=== PATIENT | female | born 1965 | race Caucasian/White ===

== ENCOUNTER 2019-01-08 19:01 | Emergency (ER) | payer MEDICAID ==
[~2019-01-08] VITALS: Ht 162.6 cm; Wt 79.4 kg
[~2019-01-08 19:01] MED LIST: ALBUTEROL SULF8.5 GM INH; LOMOTIL TABLET1 EACH ORAL; NKM; PANTOPRAZOLE SO40 MG ORAL; PREDNISONE20 MG ORAL; ZANTAC150 MG ORAL
[2019-01-08 19:10] VITALS: BP 138/91
[2019-01-08] MEDS ORDERED: CYMBALTA30 MG ORAL (19:10)
--- NOTE | 2019-01-08 19:10 | NUR ---
ED Nurse Note: Patient walked into ED c/o right knee pain that has been an on going issue for the past 3 weks, patient reports of not slipping or falling, states that pain has been an ongoing issue, patient walks with a steady gait, patient rates her pain a 10/10
[2019-01-08] MEDS ORDERED: NAPROXEN500 M2 ORAL (19:44)
--- NOTE | 2019-01-08 19:44 | Emergency Room Report ---
History of Present Illness General Chief Complaint: Pain Source: Patient Present Illness HPI 53-year-old female with history of hypertension currently controlled with medication as well as osteoarthritis here complaining of increased pain in her right knee x2 weeks. Patient denies fall and injury. Reports that 2 weeks ago she went to [facility] and x-rays were done and she was told that she has a follow-up with her primary care provider and her supervisor wrapping room regarding her existing arthritis. Patient was given ibuprofen and tramadol. Patient reports that her pain has been getting worse in the past few days with a lot of edema of the right knee. Denies pain radiation however rating the pain 10 out of 10 and constant especially with walking. Denies tingling and numbness. Denies chest pain, shortness of breath, palpitation, cardiac history. Cures was done on patient and patient has recently received tramadol. Allergies: Coded Allergies: PENICILLINS (Verified Allergy, Unknown, 08/08/15) Uncoded Allergies: MORPHINE (Allergy, Unknown, 08/08/15) Patient History Past Medical History: see triage record Past Surgical History: unable to obtain Pertinent Family History: none Last Menstrual Period: 2004 Now: No Immunizations: UTD Reviewed Nursing Documentation: PMH: Agreed; PSxH: Agreed Nursing Documentation-PMH Past Medical History: No History, Except For Hx Asthma: Yes Hx Gastrointestinal Problems: Yes - colitis, gastritis, ulcer Review of Systems All Other Systems: negative except mentioned in HPI Physical Exam Vital Signs Date Time Temp Pulse Resp B/P (MAP) Pulse Ox O2 Delivery O2 Flow Rate FiO2 01/08/19 19:07 97.5 86 16 138/91 (107) 98 Room Air Sp02 EP Interpretation: reviewed, normal General Appearance: normal inspection, well appearing, no apparent distress Head: normocephalic, atraumatic Eyes: bilateral eye normal inspection, bilateral eye PERRL ENT: normal ENT inspection, hearing grossly normal, normal pharynx Neck: normal inspection, full range of motion, supple, thyroid normal, no bony tend Respiratory: normal inspection, chest non-tender, lungs clear, no rhonchi, no respiratory distress, no wheezing Cardiovascular #1: normal inspection, regular rate, rhythm, no edema, no murmur Cardiovascular #2: 2+ dorsalis pedis (R), 2+ dorsalis pedis (L) Gastrointestinal: normal inspection, no mass Genitourinary: no CVA tenderness, other - Swelling of right knee with effusion Musculoskeletal: non-tender, no calf tenderness, swelling - Also left knee is swollen and which is suggestive of patient chronic arthritis Neurologic: normal inspection, alert, oriented x3 Psychiatric: normal inspection, judgement/insight normal Skin: no rash, normal color Lymphatic: normal inspection, no adenopathy Medical Decision Making PA Attestation All my diagnosis and treatment plans were reviewed ad discussed with my supervising physician Dr. Lagunas Diagnostic Impression: Primary Impression: Effusion, right knee Additional Impression: Arthritis ER Course 53-year-old female with history of hypertension currently controlled with medication as well as osteoarthritis here complaining of increased pain in her right knee x2 weeks. Patient denies fall and injury. Reports that 2 weeks ago she went to [facility] and x-rays were done and she was told that she has a follow-up with her primary care provider and her supervisor wrapping room regarding her existing arthritis. Patient was given ibuprofen and tramadol. Patient reports that her pain has been getting worse in the past few days with a lot of edema of the right knee. Denies pain radiation however rating the pain 10 out of 10 and constant especially with walking. Denies tingling and numbness. Denies chest pain, shortness of breath, palpitation, cardiac history. Cures was done on patient and patient has recently received tramadol. Ddx considered but are not limited to: Knee contusion, sprain, strain, arthritis , effusion Vital signs: are WNL, pt. is afebrile H&PE are most consistent with: Knee effusion arthritis ORDERS: Toradol IM, naproxen ED INTERVENTIONS: Toradol IM DISCHARGE: At this time pt. is stable for d/c to home. Will provide printed patient care instructions, and any necessary prescriptions. Care plan and follow up instructions have been discussed with the patient prior to discharge. At this point no further imaging is needed as a condition edition patient patient recently had x-ray of the right knee patient to follow-up with orthopedics as well as her supervisor wrapping room for further pain management evaluation of right knee effusion I advised the patient to lose weight and keep leg elevated alternate between icing heating the affected area also patient says that she has no cardiac history and was recently cleared for any cardiac abnormality with her primary care provider Last Vital Signs Date Time Temp Pulse Resp B/P (MAP) Pulse Ox O2 Delivery O2 Flow Rate FiO2 7/1/19 19:07 97.5 86 16 138/91 (107) 98 Room Air Disposition: HOME, SELF-CARE Condition: Stable Scripts Naproxen* (NAPROXEN*) 500 Mg Tablet 500 MG ORAL TWICE A DAY, #30 TAB Prov: Amanda Little 01/08/19 Patient Instructions: Arthritis, [id number], Knee Effusion, [id number] Additional Instructions: Follow-up with your primary care provider, your supervisor wrapping room and also teaching specialists for possible injections of steroids. Referral to physical therapy needed keep legs elevated. Amanda Little Jan 08, 2019 19:44
[2019-01-08] MEDS ORDERED: Ketorolac 30mg Inj IM ONE (19:45)
[2019-01-08 20:15] VITALS: BP 138/91
--- NOTE | 2019-01-08 20:15 | NUR ---
ER DISCHARGE NOTE: Patient is cleared to be discharged per ERMD, pt is aox4, on room air, with stable vital signs. pt was given dc and prescription instructions, pt was able to verbalize understanding, pt id band removed without complications. pt is able to ambulate with steady gait. pt took all belongings.
== END 2019-01-08 20:15 | disposition home or self-care (01) ==
LOC: EMR 19:42
DX: M25.461 Effusion, right knee (principal); M19.90 Unspecified osteoarthritis, unspecified site; Z88.0 Allergy status to penicillin; Z88.6 Allergy status to analgesic agent
CPT/HCPCS: 96372; 99283; J1885

== ENCOUNTER 2019-06-14 20:01 | Emergency (ER) | payer MEDICAID ==
[~2019-06-14] VITALS: Ht 162.6 cm; Wt 83.9 kg
[~2019-06-14 20:01] MED LIST changes: +CYMBALTA30 MG ORAL; +NAPROXEN500 M2 ORAL
[2019-06-14] MEDS ORDERED: OMEPRAZOLE20 M2 ORAL (20:08)
--- NOTE | 2019-06-14 20:10 | NUR ---
ED Nurse Note: pt presents to ED c/o CALDERON that is in the front and temples, abd pain that is in the middle of her abd and N/V/D xm 2 days. pt rates pain in both places a 10/10. pt does not know how many times she has vomited but reports not being able to keep any food or drinks down for the last two days. she started having diarrhea today but denies any blood in the diarrhea or blood in vomitus. pt denies any urinary symptoms, SOB or CP at this time. pt did not take anything [employer] and has a h/o fibromyalgia and arthritis.
[2019-06-14] MEDS ORDERED: Mylanta II UD 30ml ORAL ONE (20:15)
[2019-06-14] MEDS ORDERED: Omnipaque-300 100ml vial INJ PRN (20:15)
[2019-06-14] MEDS ORDERED: Hydromorphone 0.5mg/0.5ml inj IVP ONE (20:15)
[2019-06-14 20:30] VITALS: BP 155/99
[2019-06-14] MEDS ORDERED: DiphenhydrAMINE 50mg/ml Inj IVP ONE (20:30)
[2019-06-14] MEDS ORDERED: Metoclopramide 10mg/2ml Inj IVP ONE (20:30)
[2019-06-14 20:43] LABS: APPEARANCE,URINE CLOUDY; BILIRUBIN, URINE NEGATIVE (NEGATIVE); COLOR,URINE PALE YELLOW; GLUCOSE, URINE (UA) NEGATIVE (NEGATIVE); KETONES,URINE NEGATIVE (NEGATIVE); LEUKOCYTE ESTERASE ,URINE 1+ (NEGATIVE); NITRITE,URINE NEGATIVE (NEGATIVE); PH,URINE 8 (4.5-8.0); PROTEIN,URINE NEGATIVE (NEGATIVE); UROBILINOGEN,URINE NORMAL MG/DL (0.0-1.0)
[2019-06-14 20:48] LABS: BASOPHILS % (AUTO) 0.7 % (0.0-2.0); EOSINOPHILS % (AUTO) 1.2 % (0.0-3.0); HEMATOCRIT 41.7 % (37.0-47.0); HEMOGLOBIN 14.6 G/DL (12.0-16.0); LYMPHOCYTES % (AUTO) 22.9 % (20.0-45.0); MEAN CORPUSCULAR VOLUME 84 FL (80-99); MONOCYTES % (AUTO) 5.1 % (1.0-10.0); NEUTROPHILS % (AUTO) 70.1 % (45.0-75.0); PLATELET COUNT 263 K/UL (150-450); RED BLOOD COUNT 4.96 M/UL (4.20-5.40); RED CELL DISTRIBUTION WIDTH 10.4 % (11.6-14.8); WHITE BLOOD COUNT 6.7 K/UL (4.8-10.8)
[2019-06-14 20:59] LABS: ANION GAP 4 mmol/L (5-15); BLOOD UREA NITROGEN 9 mg/dL (7-18); CARBON DIOXIDE 35 MMOL/L (21-32); CHLORIDE 100 MMOL/L (98-107); CREATININE 0.7 MG/DL (0.55-1.30); POTASSIUM 3.6 MMOL/L (3.5-5.1); SODIUM 138 MMOL/L (136-145)
[2019-06-14 21:01] LABS: INR 0.9 (0.9-1.1)
[2019-06-14 21:04] LABS: ALANINE AMINOTRANSFERASE 87 U/L (12-78); ALBUMIN 4.1 G/DL (3.4-5.0); ALBUMIN/GLOBULIN RATIO 1.1 (1.0-2.7); ALKALINE PHOSPHATASE 112 U/L (46-116); ASPARTATE AMINO TRANSFERASE 47 U/L (15-37); BILIRUBIN,TOTAL 0.5 MG/DL (0.2-1.0)
--- NOTE | 2019-06-14 21:30 | NUR ---
ED Nurse Note: pt drove herself here but can call her son to pick her up and leave her car here
[2019-06-14] MEDS ORDERED: cefTRIAXone 1 GM in NS 55 ML IVPB ONE (21:45)
--- NOTE | 2019-06-14 21:45 | Emergency Room Report ---
History of Present Illness General Chief Complaint: Nausea, Vomiting, and Diarrhea Source: Patient Present Illness HPI 53-year-old female presents with acute nausea vomiting and diarrhea x1 day no aggravating relieving factors she endorses generalized abdominal pain achy, intermittent, no blood in her stool, severity is mild, patient is feeling a little dehydrated having a headache, patient presents for evaluation and treatment she denies any chest pain shortness of breath dyspnea on exertion no fevers or chills Allergies: Coded Allergies: PENICILLINS (Verified Allergy, Unknown, 08/08/15) Uncoded Allergies: MORPHINE (Allergy, Unknown, 08/08/15) Patient History Past Medical History: see triage record Reviewed Nursing Documentation: PMH: Agreed; PSxH: Agreed Nursing Documentation-PMH Hx Asthma: Yes Hx Gastrointestinal Problems: Yes - colitis, gastritis, ulcer Review of Systems All Other Systems: negative except mentioned in HPI Physical Exam Vital Signs Date Time Temp Pulse Resp B/P (MAP) Pulse Ox O2 Delivery O2 Flow Rate FiO2 06/14/19 20:05 97.5 90 19 155/99 (117) 98 Room Air Sp02 EP Interpretation: reviewed, normal General Appearance: well appearing, no apparent distress, alert Head: normocephalic, atraumatic Eyes: bilateral eye PERRL, bilateral eye EOMI ENT: uvula midline, moist mucus membranes Neck: supple, thyroid normal, supple/symm/no masses Respiratory: lungs clear, no respiratory distress, no retraction, no accessory muscle use Cardiovascular #1: normal peripheral pulses, regular rate, rhythm, no edema, no gallop, no murmur Gastrointestinal: non tender, soft, no guarding, no rebound Musculoskeletal: normal inspection Neurologic: alert, oriented x3 Psychiatric: mood/affect normal Skin: no rash, warm/dry Medical Decision Making Diagnostic Impression: Primary Impression: Nausea, vomiting, and diarrhea Additional Impressions: Gastroenteritis UTI (urinary tract infection) Qualified Codes: N30.00 - Acute cystitis without hematuria ER Course 53-year-old female presents with generalized abdominal pain, differential diagnosis includes gastroenteritis, UTI diverticulitis, appendicitis Patient's abdomen is soft nontender, patient given fluid hydration, pain control , reevaluation at 9:35 PM, patient feels better counseled patient that she may not need a CT scan, joint patient making was made with patient not to pursue CT abdomen pelvis in order to prevent radiation exposure, patient states she feels completely fine Strict return precautions were discussed, will give antibiotics for UTI Disposition home with return precautions Laboratory Tests Test 06/14/19 20:09 06/14/19 20:25 Urine Color Pale yellow Urine Appearance Cloudy Urine pH 8 (4.5-8.0) Urine Specific [place] 1.010 (1.005-1.035) Urine Protein Negative (NEGATIVE) Urine Glucose (UA) Negative (NEGATIVE) Urine Ketones Negative (NEGATIVE) Urine Blood Negative (NEGATIVE) Urine Nitrite Negative (NEGATIVE) Urine Bilirubin Negative (NEGATIVE) Urine Urobilinogen Normal MG/DL (0.0-1.0) Urine Leukocyte Esterase 1+ (NEGATIVE) H Urine RBC 0-2 /HPF (0 - 2) Urine WBC 0-2 /HPF (0 - 2) Urine Squamous Epithelial Cells Few /LPF (NONE/OCC) Urine Amorphous Sediment Many /LPF (NONE) H Urine Bacteria Moderate /HPF (NONE) H White Blood Count 6.7 K/UL (4.8-10.8) Red Blood Count 4.96 M/UL (4.20-5.40) Hemoglobin 14.6 G/DL (12.0-16.0) Hematocrit 41.7 % (37.0-47.0) Mean Corpuscular Volume 84 FL (80-99) Mean Corpuscular Hemoglobin 29.5 PG (27.0-31.0) Mean Corpuscular Hemoglobin Concent 35.1 G/DL (32.0-36.0) Red Cell Distribution Width 10.4 % (11.6-14.8) L Platelet Count 263 K/UL (150-450) Mean Platelet Volume 7.3 FL (6.5-10.1) Neutrophils (%) (Auto) 70.1 % (45.0-75.0) Lymphocytes (%) (Auto) 22.9 % (20.0-45.0) Monocytes (%) (Auto) 5.1 % (1.0-10.0) Eosinophils (%) (Auto) 1.2 % (0.0-3.0) Basophils (%) (Auto) 0.7 % (0.0-2.0) Prothrombin Time 9.9 SEC (9.30-11.50) Prothrombin Time INR 0.9 (0.9-1.1) PTT 27 SEC (23-33) Sodium Level 138 MMOL/L (136-145) Potassium Level 3.6 MMOL/L (3.5-5.1) Chloride Level 100 MMOL/L (98-107) Carbon Dioxide Level 35 MMOL/L (21-32) H Anion Gap 4 mmol/L (5-15) L Blood Urea Nitrogen 9 mg/dL (7-18) Creatinine 0.7 MG/DL (0.55-1.30) Estimate Glomerular Filtration Rate > 60 mL/min (>60) Glucose Level 120 MG/DL (74-106) H Calcium Level 9.0 MG/DL (8.5-10.1) Total Bilirubin 0.5 MG/DL (0.2-1.0) Aspartate Amino Transferase (AST) 47 U/L (15-37) H Alanine Aminotransferase (ALT) 87 U/L (12-78) H Alkaline Phosphatase 112 U/L (46-116) Troponin I 0.000 ng/mL (0.000-0.056) Total Protein 7.8 G/DL (6.4-8.2) Albumin 4.1 G/DL (3.4-5.0) Globulin 3.7 g/dL Albumin/Globulin Ratio 1.1 (1.0-2.7) Lipase 98 U/L (73-393) EKG Diagnostic Results EKG Time: 20:28 EP Interpretation: NSR, rate 79, QTc 435, no acute ST elevations, left axis dev Rhythm Strip Diag. Results Rhythm Strip Time: 21:44 EP Interpretation: yes Rate: 85 Rhythm: NSR, no PVC's, no ectopy Chest X-Ray Diagnostic Results Chest X-Ray Diagnostic Results : Chest X-Ray Ordered: Yes # of Views/Limited/Complete: 1 View Indication: Other - abdominal pain EP Interpretation: Yes Interpretation: no consolidation, no effusion, no pneumothorax, no acute cardiopulmonary disease Impression: No acute disease Electronically Signed by: Jose Sage MD Last Vital Signs Date Time Temp Pulse Resp B/P (MAP) Pulse Ox O2 Delivery O2 Flow Rate FiO2 06/14/19 21:17 97.5 06/14/19 20:30 95 19 155/99 98 Room Air Disposition: HOME, SELF-CARE Condition: Stable Scripts Ondansetron (Zofran) 4 Mg Tablet 4 MG ORAL Q8H PRN for Nausea & Vomiting, #10 TAB 0 Refills Prov: Jose Sage MD 06/14/19 Nitrofurantoin Monohyd/M-Cryst* (MACROBID 100 MG*) 100 Mg Capsule 100 MG ORAL EVERY 12 HOURS, #10 CAP Prov: Jose Sage MD 06/14/19 Referrals: [facility] Patient Instructions: Urinary Tract Infection, [id number], Viral Gastroenteritis, Adult, [id number] Additional Instructions: The patient was provided with discharge instructions, notified to follow-up with a primary care doctor and or specialist in the next 24-48 hours, and to return to the ED if they have worsening of their symptoms. Please note that this report is being documented using [employer] technology. This can lead to erroneous entry secondary to incorrect interpretation by the dictating instrument. Jose Sage MD Jun 14, 2019 21:45
[2019-06-14] MEDS ORDERED: ZOFRAN4 MG ORAL (21:48)
[2019-06-14] MEDS ORDERED: NITROFURANTOIN100 M2 ORAL (21:48)
[2019-06-14 22:10] VITALS: BP 139/89
--- NOTE | 2019-06-14 22:10 | NUR ---
ER DISCHARGE NOTE: Patient is cleared to be discharged per ERMD, pt is aox4, on room air, with stable vital signs. pt was given dc and prescription instructions, pt was able to verbalize understanding, pt id band and iv site removed without complications. pt is able to ambulate with steady gait. pt took all belongings and left with son who picked her up.
--- NOTE | 2019-06-15 13:43 | Cardiology Report ---
APPROVED REPORT EKG Measurement Heart [id number] Normal sinus rhythm Possible Left atrial enlargement Borderline ECG
--- NOTE | 2019-06-15 13:44 | Diagnostic Imaging Report ---
Indication: Shortness of breath Technique: One view of the chest Comparison: 11/21/2012 Findings: The lungs and pleural spaces are clear. The heart size is normal. There is no significant interim change Impression: Negative
== END 2019-06-14 22:10 | disposition home or self-care (01) ==
LOC: EMR 20:23
DX: K52.9 Noninfective gastroenteritis and colitis, unspecified (principal); N30.00 Acute cystitis without hematuria; R11.2 Nausea with vomiting, unspecified; J45.909 Unspecified asthma, uncomplicated; Z88.0 Allergy status to penicillin; Z88.5 Allergy status to narcotic agent
CPT/HCPCS: 36415; 71045; 80053; 81003; 83690; 84484; 85025; 85610; 85730; 87086; 93005; 96361; 96365; 96375; J0696; J1170; J1200; J2405; J2765; J7030; S0028; Z7502; 99284

== ENCOUNTER 2019-06-29 17:35 | Emergency (ER) | payer MEDICAID ==
[~2019-06-29] VITALS: Ht 162.6 cm; Wt 81.6 kg
[~2019-06-29 17:35] MED LIST changes: +NITROFURANTOIN100 M2 ORAL; +OMEPRAZOLE20 M2 ORAL; +ZOFRAN4 MG ORAL
[2019-06-29 17:50] VITALS: BP 137/91
[2019-06-29] MEDS ORDERED: Solu-MEDROL 125mg Inj IVP ONE (18:15)
[2019-06-29] MEDS ORDERED: DiphenhydrAMINE 50mg/ml Inj IVP ONE (18:15)
[2019-06-29 18:30] LABS: APPEARANCE,URINE CLEAR; BILIRUBIN, URINE NEGATIVE (NEGATIVE); COLOR,URINE PALE YELLOW; GLUCOSE, URINE (UA) NEGATIVE (NEGATIVE); KETONES,URINE NEGATIVE (NEGATIVE); LEUKOCYTE ESTERASE ,URINE 1+ (NEGATIVE); NITRITE,URINE NEGATIVE (NEGATIVE); PH,URINE 7 (4.5-8.0); PROTEIN,URINE NEGATIVE (NEGATIVE); UROBILINOGEN,URINE NORMAL MG/DL (0.0-1.0)
[2019-06-29 18:33] LABS: BASOPHILS % (AUTO) 0.9 % (0.0-2.0); EOSINOPHILS % (AUTO) 0.7 % (0.0-3.0); HEMATOCRIT 43.2 % (37.0-47.0); HEMOGLOBIN 14.3 G/DL (12.0-16.0); LYMPHOCYTES % (AUTO) 28.9 % (20.0-45.0); MEAN CORPUSCULAR VOLUME 86 FL (80-99); MONOCYTES % (AUTO) 7.4 % (1.0-10.0); NEUTROPHILS % (AUTO) 62.2 % (45.0-75.0); PLATELET COUNT 320 K/UL (150-450); RED CELL DISTRIBUTION WIDTH 11.5 % (11.6-14.8); WHITE BLOOD COUNT 6.8 K/UL (4.8-10.8)
[2019-06-29 18:39] LABS: ANION GAP 11 mmol/L (5-15); BLOOD UREA NITROGEN 17 mg/dL (7-18); CARBON DIOXIDE 26 MMOL/L (21-32); CHLORIDE 101 MMOL/L (98-107); CREATININE 0.7 MG/DL (0.55-1.30); POTASSIUM 3.8 MMOL/L (3.5-5.1); SODIUM 138 MMOL/L (136-145)
[2019-06-29 18:48] LABS: ALANINE AMINOTRANSFERASE 72 U/L (12-78); ALBUMIN 3.7 G/DL (3.4-5.0); ALBUMIN/GLOBULIN RATIO 0.9 (1.0-2.7); ALKALINE PHOSPHATASE 119 U/L (46-116); ASPARTATE AMINO TRANSFERASE 38 U/L (15-37); BILIRUBIN,TOTAL 0.2 MG/DL (0.2-1.0)
[2019-06-29] MEDS ORDERED: DIPHENHYDRAMINE25 M1 ORAL (19:09)
[2019-06-29] MEDS ORDERED: PREDNISONE20 MG ORAL (19:09)
[2019-06-29 19:10] VITALS: BP 134/88
--- NOTE | 2019-06-29 20:04 | Emergency Room Report ---
History of Present Illness General Chief Complaint: Allergic Reaction Source: Patient Present Illness HPI 53-year-old female presents ED for evaluation. Complaining of rash and itchiness x1 week. Believes she is having allergic reaction. States she does have allergies to morphine. States that she was seen here on 06/14 and was prescribed antibiotics for UTI. Completed the antibiotic prescription but states a few days later she started developing itchiness and rash. Took Benadryl at home but states there was no significant relief. Denies tongue swelling or throat swelling. Denies shortness of breath. No other aggravating relieving factors. Denies any other associated symptoms Allergies: Coded Allergies: PENICILLINS (Verified Allergy, Unknown, 08/08/15) Uncoded Allergies: MORPHINE (Allergy, Unknown, 08/08/15) Patient History Past Medical History: asthma, GERD Past Surgical History: none Pertinent Family History: none Social History: Denies: smoking, alcohol use, drug use Now: No Immunizations: UTD Reviewed Nursing Documentation: PMH: Agreed; PSxH: Agreed Nursing Documentation-PMH Past Medical History: No History, Except For Hx Asthma: Yes Hx Gastrointestinal Problems: Yes - colitis, gastritis, ulcer Review of Systems All Other Systems: negative except mentioned in HPI Physical Exam Vital Signs Date Time Temp Pulse Resp B/P (MAP) Pulse Ox O2 Delivery O2 Flow Rate FiO2 06/29/19 17:39 97.5 93 18 137/91 (106) 99 Room Air Sp02 EP Interpretation: reviewed, normal General Appearance: no apparent distress, alert, GCS 15, non-toxic Head: normocephalic, atraumatic Eyes: bilateral eye normal inspection, bilateral eye PERRL ENT: hearing grossly normal, normal pharynx, no angioedema, normal voice Neck: full range of motion, supple/symm/no masses Respiratory: chest non-tender, lungs clear, normal breath sounds, speaking full sentences Cardiovascular #1: regular rate, rhythm, no edema Cardiovascular #2: 2+ carotid (R), 2+ carotid (L), 2+ radial (R), 2+ radial (L) , 2+ dorsalis pedis (R), 2+ dorsalis pedis (L) Gastrointestinal: normal bowel sounds, non tender, soft, non-distended, no guarding, no rebound Rectal: deferred Genitourinary: normal inspection, no CVA tenderness Musculoskeletal: back normal, normal range of motion, gait/station normal, non- tender Neurologic: alert, motor strength/tone normal, oriented x3, sensory intact, responsive, speech normal Psychiatric: judgement/insight normal, memory normal, mood/affect normal, no suicidal/homicidal ideation Reflexes: 3+ bicep (R), 3+ bicep (L), 3+ tricep (R), 3+ tricep (L), 3+ knee (R) , 3+ knee (L) Skin: other - diffuse urticaria to abdomen, back, arms Lymphatic: no adenopathy Medical Decision Making Diagnostic Impression: Primary Impression: Allergic reaction Qualified Codes: T78.40XA - Allergy, unspecified, initial encounter ER Course Hospital Course 53-year-old female presents ED with itchiness and rash. Differential diagnoses include: allergic reaction, angioedema, anaphylaxis Clinical course Patient placed on stretcher. case monitor. After initial history and physical, I ordered Solu-Medrol, Benadryl, pepcid, IVFS Labs reviewed - electrolytes okay, no leukocytosis, hemoglobin/hematocrit okay On reassessment symptoms improved. States she feels better. Discussed findings with the patient. Patient cannot recall any new food or medication other than the antibiotics that she just completed. However the symptoms started only after the antibiotic prescription was finished. I do recommend patient follow-up with her emergency doctor. We will discharge with prednisone and Benadryl. i. I feel this is a highly complex case requiring extensive working including EKG/Rhythm strip, Xray/CT/US, Blood/urine lab work, repeat exams while in ED, and administration of strong opiates/narcotics for pain control, admission to hospital or close patient follow up. Diagnosis - allergic reaction Stable and discharged to home with prescriptions for prednisone, Benadryl. Followup with PMD. Return to ED if symptoms recur or worsen Labs Test 06/29/19 18:20 White Blood Count 6.8 K/UL (4.8-10.8) Red Blood Count 5.00 M/UL (4.20-5.40) Hemoglobin 14.3 G/DL (12.0-16.0) Hematocrit 43.2 % (37.0-47.0) Mean Corpuscular Volume 86 FL (80-99) Mean Corpuscular Hemoglobin 28.7 PG (27.0-31.0) Mean Corpuscular Hemoglobin Concent 33.2 G/DL (32.0-36.0) Red Cell Distribution Width 11.5 % (11.6-14.8) Platelet Count 320 K/UL (150-450) Mean Platelet Volume 7.2 FL (6.5-10.1) Neutrophils (%) (Auto) 62.2 % (45.0-75.0) Lymphocytes (%) (Auto) 28.9 % (20.0-45.0) Monocytes (%) (Auto) 7.4 % (1.0-10.0) Eosinophils (%) (Auto) 0.7 % (0.0-3.0) Basophils (%) (Auto) 0.9 % (0.0-2.0) Urine Color Pale yellow Urine Appearance Clear Urine pH 7 (4.5-8.0) Urine Specific [place] 1.005 (1.005-1.035) Urine Protein Negative (NEGATIVE) Urine Glucose (UA) Negative (NEGATIVE) Urine Ketones Negative (NEGATIVE) Urine Blood Negative (NEGATIVE) Urine Nitrite Negative (NEGATIVE) Urine Bilirubin Negative (NEGATIVE) Urine Urobilinogen Normal MG/DL (0.0-1.0) Urine Leukocyte Esterase 1+ (NEGATIVE) Urine RBC 0-2 /HPF (0 - 2) Urine WBC 0-2 /HPF (0 - 2) Urine Squamous Epithelial Cells Occasional /LPF Urine Bacteria None /HPF (NONE) Sodium Level 138 MMOL/L (136-145) Potassium Level 3.8 MMOL/L (3.5-5.1) Chloride Level 101 MMOL/L (98-107) Carbon Dioxide Level 26 MMOL/L (21-32) Anion Gap 11 mmol/L (5-15) Blood Urea Nitrogen 17 mg/dL (7-18) Creatinine 0.7 MG/DL (0.55-1.30) Estimat Glomerular Filtration Rate > 60 mL/min (>60) Glucose Level 110 MG/DL (74-106) Calcium Level 9.0 MG/DL (8.5-10.1) Total Bilirubin 0.2 MG/DL (0.2-1.0) Aspartate Amino Transf (AST/SGOT) 38 U/L (15-37) Alanine Aminotransferase (ALT/SGPT) 72 U/L (12-78) Alkaline Phosphatase 119 U/L (46-116) Total Protein 8.0 G/DL (6.4-8.2) Albumin 3.7 G/DL (3.4-5.0) Globulin 4.3 g/dL Albumin/Globulin Ratio 0.9 (1.0-2.7) Last Vital Signs Date Time Temp Pulse Resp B/P (MAP) Pulse Ox O2 Delivery O2 Flow Rate FiO2 06/29/19 19:10 97.5 76 16 134/88 99 Room Air Status: improved Disposition: HOME, SELF-CARE Condition: Stable Scripts Diphenhydramine Hcl* (DIPHENHYDRAMINE HCL*) 25 Mg Capsule 25 MG ORAL Q6H PRN for Itching for 5 Days, #30 CAP 0 Refills Prov: Alexander Gambino MD 06/29/19 Prednisone* (PREDNISONE*) 20 Mg Tablet 40 MG ORAL DAILY, #10 TAB Prov: Alexander Gambino MD 06/29/19 Referrals: [facility]ERR[facility] (PCP) Patient Instructions: Drug Allergy Alexander Gambino MD Jun 29, 2019 20:03
== END 2019-06-29 19:10 | disposition home or self-care (01) ==
LOC: EMR 18:25
DX: T78.40XA Allergy, unspecified, initial encounter (principal); J45.909 Unspecified asthma, uncomplicated; Y92.9 Unspecified place or not applicable; Z88.0 Allergy status to penicillin; Z88.5 Allergy status to narcotic agent
CPT/HCPCS: 36415; 80053; 81003; 85025; 96374; 96375; J1200; J2930; S0028; Z7502; 99284